=== PATIENT | male | born 1950 | race Caucasian/White ===

== ENCOUNTER 2020-03-04 13:12 | Emergency (ER) | payer MEDICARE ==
[~2020-03-04] VITALS: Ht 177.8 cm; Wt 111.1 kg
[~2020-03-04 13:12] MED LIST: FISH OIL + D31 EACH; OMEP20ER; OSTERA TABLET1 EACH; OXYB5ER; POLY500; Super B Comple1 EAC2
[2020-03-04] MEDS ORDERED: Oxybutynin Chlo10 MG PO (13:27)
[2020-03-04] MEDS ORDERED: OMEP20ER PO (13:27)
[2020-03-04 13:54] LABS: BASOPHILS ABSOLUTE AUTO 0.07 K/mm3 (0.00-0.23); BASOPHILS PERCENT AUTO 1 % (0-2); EOSINOPHILS ABSOLUTE AUTO 0.13 K/mm3 (0.00-0.68); EOSINOPHILS PERCENT AUTO 2 % (0-6); Hematocrit 47.2 % (37.0-53.0); Hemoglobin 16.2 g/dL (13.5-17.5); IMMATURE GRAN ABSOLUTE AUTO 0.03 K/mm3 (0.00-0.10); IMMATURE GRAN PERCENT AUTO 1 % (0-1); LYMPHOCYTES ABSOLUTE AUTO 1.54 K/mm3 (0.84-5.20); LYMPHOCYTES PERCENT AUTO 23 % (21-46); MONOCYTES ABSOLUTE AUTO 0.61 K/mm3 (0.16-1.47); MONOCYTES PERCENT AUTO 9 % (4-13); Mean Corpuscular HGB 31.5 pg (26.0-34.0); Mean Corpuscular HGB Conc 34.3 g/dL (31.5-36.5); Mean Corpuscular Volume 92 fL (80-100); Mean Platelet Volume 10.4 fL (9.1-12.4); NEUTROPHILS ABSOLUTE AUTO 4.27 K/mm3 (1.96-9.15); NEUTROPHILS PERCENT AUTO 64 % (41-73); Platelet Count 225 K/mm3 (150-400); RDW Coefficient Variation 11.7 % (11.7-14.2); RDW Standard Deviation 39.6 fL (35.1-46.3); Red Blood Cell Count 5.15 M/mm3 (4.30-5.90); White Blood Cell Count 6.65 K/mm3 (4.00-11.30)
[2020-03-04 14:21] LABS: Alanine Aminotransfer (ALT/SGP 30 U/L (12-78); Albumin, Blood 3.7 g/dL (3.4-5.0); Albumin/Globulin Ratio 1.1 (0.8-1.8); Alk Phos 52 U/L (50-136); Anion Gap 5 mmol/L (6-16); Aspartate Aminotrans (AST/SGOT 23 U/L (12-37); Bilirubin, Total 0.6 mg/dL (0.1-1.0); Blood Urea Nitrogen 20 mg/dL (8-24); Bun/Creatinine Ratio 20.7 (12.0-20.0); CO2, Blood 26 mmol/L (21-32); Calcium, Blood 8.6 mg/dL (8.5-10.1); Chloride, Blood 108 mmol/L (98-108); Creatinine, Blood 0.97 mg/dL (0.60-1.20); Globulin, Blood 3.4 g/dL (2.2-4.0); Glomerular Filtration Rate >60 (60-); Glucose, Blood 125 mg/dL (70-99); Sodium, Blood 139 mmol/L (136-145); Total Protein, Blood 7.1 g/dL (6.4-8.2); Troponin I <0.015 ng/mL (0.000-0.040)
[2020-03-04] MEDS ORDERED: XARELTO20 MG PO (14:46)
== END 2020-03-04 15:10 | disposition home or self-care (01) ==
LOC: ER 13:12
PROVIDERS: Emergency Medicine
DX: I48.91 Unspecified atrial fibrillation (principal); Z79.899 Other long term (current) drug therapy
CPT/HCPCS: 36415; 71045; 80053; 83880; 84443; 84484; 85025; 93005; 93010; 99285-25

== ENCOUNTER 2020-05-22 08:34 | Day surgery (SDC) | payer MEDICARE ==
[~2020-05-22] VITALS: Ht 177.8 cm; Wt 112.3 kg
[~2020-05-22 08:34] MED LIST changes: +DICLOFENAC SOD100 G1 TOP; +FLUT.05NI; +LOSA25 PO; +METO50ER PO; +OMEP20ER PO; +Oxybutynin Chlo10 MG PO; +XARELTO20 MG PO
--- NOTE | 2020-05-22 10:55 | NUR ---
PT VERBALIZED UNDERSTANDING OF D/C INSTRUCTIONS. PAPERWORK PROVIDED IN FOLDER. IV REMOVED FROM LEFT HAND WITH CATH INTACT, PRESSURE DRESSING APPLIED. ARRIVES TO DRIVE HIM HOME, PT AMBULATES WITH STEADY GAIT, TOLERATES PO FLUIDS WITH NO DIFFICULTIES, DENIES CP OR SOB. VSS. ENCOURAGED TO FOLLOW UP WITH PROVIDER SCHEDULED. PT ALSO EDUCATED ABOUT CHANGE TO METOPROLOL XL AND CONTINUE BLOOD THINNER.
== END 2020-05-22 22:38 | disposition home or self-care (01) ==
LOC: MHTC 08:34
DX: I48.19 Other persistent atrial fibrillation (principal); E78.5 Hyperlipidemia, unspecified; E66.9 Obesity, unspecified; Z79.01 Long term (current) use of anticoagulants; Z79.899 Other long term (current) drug therapy; Z87.891 Personal history of nicotine dependence; Z88.8 Allergy status to other drugs, medicaments and biological substances; Z91.011 Allergy to milk products; Z68.35 Body mass index [BMI] 35.0-35.9, adult
CPT/HCPCS: 92960; 93005; 93010; 99152; J2704; J7030

== ENCOUNTER → 2020-10-15 | Outpatient (CLI) | payer MEDICARE | END | disposition home or self-care (01) | LOC: LAB EV 10:20 → LAB SHORT 10:20 | DX: H60.91 Unspecified otitis externa, right ear (principal) | CPT/HCPCS: 87070; 87077; 87186; 87205 ==